=== PATIENT | female | born 1990 | race Caucasian/White ===

== ENCOUNTER → 2022-11-26 | Outpatient (CLI) | payer OTHER, SELFPAY | END | disposition home or self-care (01) | PROVIDERS: Referring Provider Obstetrics & Gynecology; Visit Provider Obstetrics & Gynecology | DX: N91.2 Amenorrhea, unspecified (principal) | CPT/HCPCS: 36415; 84702; 86850; 86900; 86901 ==

== ENCOUNTER → 2022-11-27 | Outpatient (CLI) | payer OTHER, SELFPAY ==
--- NOTE | 2022-11-27 09:57 | US_ITS ---
ACR Level 3 findings have been noted. An addendum which confirms receipt of the report will follow. INDICATION: viability EXAMINATION: US OB Less Than 14 Weeks TECHNIQUE: Transabdominal pelvic ultrasound was performed. Grayscale, spectral waveform, and color flow Doppler evaluation of the adnexa. COMPARISON: None. FINDINGS: UTERUS: Measures 8 x 5.8 x 4.7 cm. RIGHT OVARY: Measures 3.4 x 1.8 x 1.6 cm. Normal. LEFT OVARY: Measures 3 x 3.1 x 2.4 cm. Normal. FREE FLUID: None. INTRAUTERINE GESTATIONAL SAC(s) (size/shape): Single. YOLK SAC: Identified POLE: Identified CRL 0.8 cm. ESTIMATED GESTATION AGE: 6 weeks and 6 days. HEART MOTION: 132 bpm. PLACENTA: Not visualized due to age. SUBCHORIONIC HEMORRHAGE: Small AMNIOTIC FLUID: Qualitatively normal. US/Init OB < 14Wks US IMPRESSION: Single live intrauterine . Estimated gestational age is 6 weeks and 6 days. Small subchorionic hemorrhage. Electronically Signed: Zev Salas MD at 19:35 EDT ,
== END | disposition home or self-care (01) ==
LOC: US 09:56
PROVIDERS: Visit Provider Obstetrics & Gynecology
DX: O36.80X0 Pregnancy with inconclusive fetal viability, not applicable or unspecified (principal); Z3A.00 Weeks of gestation of pregnancy not specified
CPT/HCPCS: 76801

== ENCOUNTER → 2022-12-25 | Outpatient (CLI) | payer OTHER, SELFPAY ==
[2022-12-27 05:07] LABS: Chlamydia By Nucleic Acid AMP Negative (Negative); Gonococcus By Nucleic Acid AMP Negative (Negative)
[2022-12-29 14:08] LABS: HPV APTIMA, High Risk Negative (Negative)
== END | disposition home or self-care (01) ==
LOC: OPBI 10:29
PROVIDERS: Referring Provider Obstetrics & Gynecology; Visit Provider Obstetrics & Gynecology
DX: Z34.90 Encounter for supervision of normal pregnancy, unspecified, unspecified trimester (principal)
CPT/HCPCS: 87086; 87088; 87491; 87591; 87624; 88175; G0145

== ENCOUNTER → 2023-02-19 | Outpatient (CLI) | payer OTHER, SELFPAY ==
--- NOTE | 2023-02-19 07:55 | US_ITS ---
STUDY: SECOND AND THIRD TRIMESTER OBSTETRICAL ULTRASOUND REASON FOR EXAM: Female, 32 years old anatomy LMP: October 11, 2022. TECHNIQUE: Transabdominal and Transvaginal TECHNICAL QUALITY: Adequate. PRIOR ULTRASOUND: Comparison is made with prior study dated November 27, 2022. FINDINGS: There is a single intrauterine fetus. The fetus is in a breech presentation. There is demonstrated cardiac activity with a heart rate of 141 bpm. There is a normal amniotic fluid volume. The largest amniotic fluid pocket measures 3.4 cm x 9.5 cm. The amniotic fluid index (DARRYL) is within normal limits. The placenta is posterior in location and is not low lying. There are Grade 0 placental changes. The cervix measures 3.8 cm in length. The bilateral adnexal regions are normal. BIOMETRY: BPD: 4.04 cm: 18 weeks, 2 days HC: 15.26 cm: 18 weeks, 2 days AC: 13.01 cm: 18 weeks, 4 days FL: 2.76 cm: 18 weeks, 3 days CI: 75% FL/BPD: 68% FL/HC: FL/AC: 21% HC/AC: 1.17 age by current US: 18 weeks, 2 days. KATHLEEN by current US: July 21, 2023. Estimated weight: 241 grams, +/- 36 grams, 30 %. age by prior US: 18 weeks, 5 days. KATHLEEN by prior US: July 18, 2023. Age by LMP: 18 weeks, 6 days. KATHLEEN by LMP: July 17, 2023. ANATOMY: Gender: Female Cranium: Normal lateral ventricles. Normal choroid plexus. Normal cerebellum. Normal cisterna magna. Normal face, nose and lips. Chest: Normal 4-chamber heart. Abdomen/Pelvis: Normal diaphragm. Normal stomach. Normal abdominal wall. Normal cord insertion. Normal 3 vessel cord. Normal kidneys. Normal bladder. Spine: Normal cervical spine. Normal thoracic spine. Normal lumbar spine. Normal sacrum. Extremities: Normal bilateral upper extremities. Normal bilateral lower extremities. US/OB Anatomy w/ Transvaginal IMPRESSION: Single live intrauterine gestation with a mean gestational age of 18 weeks and 5 days. The measurements obtained today fall within normal expected range. Electronically Signed: Shaheen Holland MD at 13:05 EDT ,
== END | disposition home or self-care (01) ==
LOC: OPUS 07:54
PROVIDERS: Referring Provider Obstetrics & Gynecology; Visit Provider Obstetrics & Gynecology
DX: Z34.91 Encounter for supervision of normal pregnancy, unspecified, first trimester (principal); Z3A.10 10 weeks gestation of pregnancy
CPT/HCPCS: 76805; 76817

== ENCOUNTER → 2023-03-18 | Outpatient (CLI) | payer OTHER, SELFPAY ==
[2023-03-18 09:10] LABS: Absolute Lymphocyte Count 1.64 X10^3/uL (0.83-4.51); Absolute Neutrophil Count 7.5 X10^3/uL (2.0-7.7); Basophil# 0.05 X10^3/uL; Basophil% 0.5 % (0-1); Hematocrit 37.9 % (37-47); Hemoglobin 13.3 g/dL (12.0-15.0); Lymphocyte # 1.64 X10^3/ul (0.83-4.51); Lymphocyte % 16.5 % (19-41); Mean Corp Hgb Conc 35.1 g/dL (32-36); Mean Corpuscular Volume 96.9 fL (81-99); Mean Platelet Vol. 9.3 fl (6.2-12.0); NRBC Flagged by Analyzer 0 % (0-5); Neutrophil # 7.54 X10^3/uL (2.7-7.7); Neutrophil % 76.2 % (47-70); Platelet Count 174 K/mm3 (150-450); RBC Distribution Width CV 13.7 % (11.6-14.6); RBC Distribution Width SD 49.1 fl (35.1-43.9); Red Blood Count 3.91 M/mm3 (4.2-5.4); White Blood Count 9.9 K/mm3 (4.4-11.0)
[2023-03-18 10:32] LABS: HIV - WCH Non-Reactive (Nonreactive); Hepatitis B Surface Antigen Non-Reactive (Nonreactive); Hepatitis C Antibody Non-Reactive (Nonreactive); Rubella IgG Equiv (Nonreactive); Syphilis Antibodies Non-reactive
== END | disposition home or self-care (01) ==
LOC: PAVLAB 08:55
PROVIDERS: Referring Provider Obstetrics & Gynecology; Visit Provider Obstetrics & Gynecology
DX: Z34.90 Encounter for supervision of normal pregnancy, unspecified, unspecified trimester (principal)
CPT/HCPCS: 36415; 85025; 86703; 86762; 86780; 86803; 86850; 86900; 86901; 87340

== ENCOUNTER → 2023-05-01 | Outpatient (CLI) | payer OTHER, SELFPAY ==
[2023-05-01 15:56] LABS: Glucose Challenge Gest 1H 50g 142 mg/dL (70-140)
[2023-05-01 17:12] LABS: Absolute Lymphocyte Count 1.52 X10^3/uL (0.83-4.51); Absolute Neutrophil Count 7.2 X10^3/uL (2.0-7.7); Basophil# 0.03 X10^3/uL; Basophil% 0.3 % (0-1); Eosinophil# 0.03 X10^3/uL; Eosinophils% 0.3 % (0-5); Hemoglobin 12.5 g/dL (12.0-15.0); Lymphocyte # 1.52 X10^3/ul (0.83-4.51); Lymphocyte % 16.3 % (19-41); Mean Corp Hgb Conc 34.7 g/dL (32-36); Mean Corpuscular Hgb 34.4 pg (27.0-32.0); Mean Corpuscular Volume 99.2 fL (81-99); Mean Platelet Vol. 9.8 fl (6.2-12.0); Monocyte# 0.48 X10^3/uL; Monocyte% 5.1 % (0-10); NRBC Flagged by Analyzer 0 % (0-5); Neutrophil # 7.22 X10^3/uL (2.7-7.7); Neutrophil % 77.5 % (47-70); Platelet Count 172 K/mm3 (150-450); RBC Distribution Width CV 13.3 % (11.6-14.6); RBC Distribution Width SD 48.1 fl (35.1-43.9); Red Blood Count 3.63 M/mm3 (4.2-5.4); White Blood Count 9.3 K/mm3 (4.4-11.0)
[2023-05-01 17:56] LABS: HIV - WCH Non-Reactive (Nonreactive); Syphilis Antibodies Non-reactive
== END | disposition home or self-care (01) ==
PROVIDERS: Nurse Practitioner Women's Health; Referring Provider Registered Nurse; Visit Provider Registered Nurse
DX: O09.90 Supervision of high risk pregnancy, unspecified, unspecified trimester (principal); Z13.1 Encounter for screening for diabetes mellitus; Z3A.26 26 weeks gestation of pregnancy
CPT/HCPCS: 36415; 82950; 85025; 86703; 86780

== ENCOUNTER → 2023-05-06 | Outpatient (CLI) | payer OTHER, SELFPAY ==
[2023-05-06 09:27] LABS: Glucose Challenge Gest 1H 50g 160 mg/dL (70-140)
== END | disposition home or self-care (01) ==
LOC: PAVLAB 08:11
PROVIDERS: Referring Provider Obstetrics & Gynecology; Visit Provider Obstetrics & Gynecology
DX: Z13.1 Encounter for screening for diabetes mellitus (principal)
CPT/HCPCS: 36415; 82950

== ENCOUNTER → 2023-05-09 | Outpatient (CLI) | payer OTHER, SELFPAY ==
[2023-05-09 10:49] LABS: Glucose GTT-Gestation. Fasting 101 mg/dL (<105)
[2023-05-09 11:43] LABS: Glucose GTT-Gestational 1 Hr 158 mg/dL (<190)
[2023-05-09 12:57] LABS: Glucose GTT-Gestational 2 Hr 142 mg/dL (<165)
[2023-05-09 14:10] LABS: Glucose GTT-Gestational 3 Hr 115 L (<145)
== END | disposition home or self-care (01) ==
LOC: LAB 09:48
PROVIDERS: Referring Provider Obstetrics & Gynecology; Visit Provider Obstetrics & Gynecology
DX: O99.810 Abnormal glucose complicating pregnancy (principal); Z3A.00 Weeks of gestation of pregnancy not specified
CPT/HCPCS: 36415; 82951; 82952

== ENCOUNTER → 2023-05-16 | Outpatient (CLI) | payer OTHER, SELFPAY ==
--- NOTE | 2023-05-16 09:19 | US_ITS ---
STUDY: ULTRASOUND BREAST - LEFT REASON FOR EXAM: Female, 32 years old. Palpable lump left breast. Patient is 31 weeks . TECHNIQUE: Axial and longitudinal images of the LEFT breast were performed with a high resolution ultrasound transducer. # OF IMAGES: 20 COMPARISON: None. FINDINGS: LEFT Breast: The upper inner quadrant of the left breast was examined with ultrasound. There is dense fibroglandular tissue. No sonographic abnormality is seen. US/Breast Limited Unilateral IMPRESSION: No sonographic abnormality is seen. ASSESSMENT CATEGORY: BIRADS Category 1: Negative. A letter regarding these results will be sent to the patient by the facility within 30 days. Electronically Signed: Shaheen Holland MD at 15:41 EDT ,
== END | disposition home or self-care (01) ==
PROVIDERS: Referring Provider Obstetrics & Gynecology; Visit Provider Obstetrics & Gynecology
DX: N63.20 Unspecified lump in the left breast, unspecified quadrant (principal)
CPT/HCPCS: 76642

== ENCOUNTER 2023-06-09 10:45 | Outpatient (CLI) | payer OTHER, SELFPAY ==
[2023-06-09 10:58] VITALS: BMI 30.5
[2023-06-09 11:00] VITALS: BP 125/77; PULSE 89; TEMP 36.9
--- NOTE | 2023-06-16 09:55 | OB.TRI.PN ---
Progress Notes Date of Service: 06/09/23 Progress Note: Patient presents for triage evaluation secondary to decreased movement FHT: 140 Moderate variability reactive no decelerations category I tracing [place]: no regular Contractions Assessment and plan: decresaed movement Reactive NST, reassuring maternal and status patient discharged to home to follow-up as scheduled. See problem list details for additional plan information. Charges/Coding Procedures Urinary/Genital 52xxx-59xxx: [id number] non-stress test Interp
== END 2023-06-09 11:56 | disposition home or self-care (01) ==
LOC: WPOUT 10:52 → WP 10:53
PROVIDERS: Visit Provider Obstetrics & Gynecology
DX: O36.8190 Decreased fetal movements, unspecified trimester, not applicable or unspecified (principal); Z3A.00 Weeks of gestation of pregnancy not specified
CPT/HCPCS: 59025; 59050

== ENCOUNTER → 2023-06-12 | Outpatient (CLI) | payer OTHER, SELFPAY ==
[2023-06-12 08:41] LABS: Basophil# 0.04 X10^3/uL; Basophil% 0.4 % (0-1); Eosinophil# 0.06 X10^3/uL; Eosinophils% 0.7 % (0-5); Hematocrit 38.2 % (37-47); Hemoglobin 13.4 g/dL (12.0-15.0); Lymphocyte % 16.4 % (19-41); Mean Corp Hgb Conc 35.1 g/dL (32-36); Mean Corpuscular Hgb 34.1 pg (27.0-32.0); Mean Corpuscular Volume 97.2 fL (81-99); Mean Platelet Vol. 9.3 fl (6.2-12.0); Monocyte# 0.47 X10^3/uL; Monocyte% 5.1 % (0-10); NRBC Flagged by Analyzer 0 % (0-5); Neutrophil # 7.03 X10^3/uL (2.7-7.7); Platelet Count 151 K/mm3 (150-450); RBC Distribution Width CV 13.6 % (11.6-14.6); RBC Distribution Width SD 48.5 fl (35.1-43.9); Red Blood Count 3.93 M/mm3 (4.2-5.4); White Blood Count 9.1 K/mm3 (4.4-11.0)
[2023-06-12 09:37] LABS: HIV - WCH Non-Reactive (Nonreactive); Syphilis Antibodies Non-reactive
== END | disposition home or self-care (01) ==
LOC: PAVLAB 08:27
PROVIDERS: Referring Provider Registered Nurse; Visit Provider Registered Nurse
DX: O09.90 Supervision of high risk pregnancy, unspecified, unspecified trimester (principal); Z3A.00 Weeks of gestation of pregnancy not specified
CPT/HCPCS: 36415; 85025; 86703; 86780

== ENCOUNTER → 2023-06-24 | Outpatient (CLI) | payer OTHER, SELFPAY | END | disposition home or self-care (01) | LOC: LABSPEC 13:22 | PROVIDERS: Referring Provider Nurse Practitioner Women's Health; Visit Provider Nurse Practitioner Women's Health | DX: Z34.90 Encounter for supervision of normal pregnancy, unspecified, unspecified trimester (principal) | CPT/HCPCS: 87081 ==

== ENCOUNTER 2023-07-18 09:05 | Inpatient (IN) | payer OTHER, SELFPAY ==
[2023-07-18] VITALS (43 sets, daily range): BP systolic 90–141; BP diastolic 53–87; PULSE 58–107; RESP 16; TEMP 36.4–36.8; O2SAT 98–100; BMI 31.0
[2023-07-18 09:53] LABS: Absolute Lymphocyte Count 1.57 X10^3/uL (0.83-4.51); Absolute Neutrophil Count 8.6 X10^3/uL (2.0-7.7); Basophil# 0.04 X10^3/uL; Basophil% 0.4 % (0-1); Eosinophil# 0.01 X10^3/uL; Eosinophils% 0.1 % (0-5); Hemoglobin 13.9 g/dL (12.0-15.0); Lymphocyte # 1.57 X10^3/ul (0.83-4.51); Lymphocyte % 14.6 % (19-41); Mean Corp Hgb Conc 34.8 g/dL (32-36); Mean Corpuscular Hgb 33.7 pg (27.0-32.0); Mean Corpuscular Volume 97.1 fL (81-99); Mean Platelet Vol. 9.7 fl (6.2-12.0); Monocyte# 0.55 X10^3/uL; Monocyte% 5.1 % (0-10); NRBC Flagged by Analyzer 0 % (0-5); Neutrophil # 8.55 X10^3/uL (2.7-7.7); Neutrophil % 79.2 % (47-70); Platelet Count 149 K/mm3 (150-450); RBC Distribution Width CV 13.5 % (11.6-14.6); RBC Distribution Width SD 47.9 fl (35.1-43.9); Red Blood Count 4.12 M/mm3 (4.2-5.4); White Blood Count 10.8 K/mm3 (4.4-11.0)
[2023-07-18] MEDS: Lactated Ringers 1,000 ML 200 ML IV (10:30)
[2023-07-18] MEDS: LACTATED RINGERS 500 ML 999 ML IV ×2 (11:05→13:18)
[2023-07-18] MEDS: fentaNYL-bupivacaine (epidural) 100 ML BAG EPIDURAL (12:55)
[2023-07-18] MEDS: Ondansetron 4 MG/2 ML Vial IV (13:19)
--- NOTE | 2023-07-18 14:37 | HP.PCM.OB_ITS ---
HPI - General General Date of Admission: 07/18/23 HPI Narrative TIANA ATKINSON, is a 32 F who presents IAL 5 cm dilated. Maternal Data Information KATHLEEN Calculator Estimated Delivery Date Method Current WG Current Estimate 07/18/23 LMP (Certain) 40w 0d PFSH PFSH Medical History Left breast lump Home Medications pediatric [id number] (Flintstones Complete (iron) chewable tablet) 1 tab PO DAILY 12/24/22 [History Last Taken 07/17/23 18:00] Allergy/AdvReac Type Severity Reaction Status Date / Time clarithromycin [From Biaxin] Allergy Intermediate Vomiting Verified 07/18/23 13:07 Family History Grandfather Colon cancer Paternal Grandmother Colon cancer Paternal Grandfather Colon cancer Maternal Grandmother Colon cancer Maternal Surgical History (Updated 07/18/23 @ 09:55 by Martha Christopher) History of lumpectomy of right breast Hx of tonsillectomy [place] teeth extracted Social History adopted: No household members: spouse and children number of children: 1 current occupational status: employed current occupation: Sales current occupational exposures/hazards: No pets and animals: No history of recent travel: No sexually active: Yes Smoking Status: Never smoker alcohol intake: never substance use type: does not use well-balanced diet: daily or most days caffeine: Yes Type: coffee Number of servings: 1 eating out: rarely or never during the past year weight has: increased > 10 lbs what type of physical activity do you participate in: none gage/christianity: Adventist seatbelt use: always do you feel safe at home: Yes additional social history: Michael- Insurance History 2 Elective abortions Hx Para 1 Spontaneous abortions Hx # Term Pregnancies Ectopic pregnancies Hx # Pregnancies Multiple births # of living children 1 Past Pregnancies Del. Date Name GA/Weeks Outcome Route Bth Weight Gen Labor Lgth Anesthesia Del Locatn Provider FOB 01/15/18 Fredis 36 live - full term 8# Male [address] [facility] Visit Details Expected Delivery Route/Plan Labor Preferences- CB/BF classes: no labor support person: Michael labor intervention preferences: [] pain management options preferred: epidural cut cord/dad catch: yes : yes PP control planned: discussed/POP discussed possible routes of delivery and associated risks: [] special requests: [] Plans Covid status: discussed. Flu vaccine: declines Tdap vaccine:declines Rhogam: na LARC form signed:yes Problem list reviewed and updated with the most current plan of care details and appropriate orders placed. Relevant counseling for the gestational age provided. Continue routine care and follow up unless otherwise noted in visit notes/problem list details OB Flowsheet Initial Weight: 211 lb Date -?-?-?-?-?-?-?-?-?-?-?-?- EGA Weight BP Urine Prot -?-?-?-?-?-?-?-?-?-?-?-?- Glucose FHR FuHt Pres Dilation -?-?-?-?-?-?-?-?-?-?-?-?- Effaced St Visit Note 12/25/22 -?-?-?-?-?-?-?-?-?-?-?-?- 10w 5d 211 lb 2 oz (+2 oz) 120/76 -?-?-?-?-?-?-?-?-?-?-?-?- 160 -?-?-?-?-?-?-?-?-?-?-?-?- SM- CRL cons wit h LMP SM- CRL 4.2 cm cons with LMP 01/25/23 -?-?-?-?-?-?-?-?-?-?-?-?- 15w 1d 213 lb (+2 lb) 120/75 Negative -?-?-?-?-?-?-?-?-?-?-?-?- Negative 147 -?-?-?-?-?-?-?-?-?-?-?-?- JV- pt is tearfu l today because a collegue lost a baby at 22 weeks recently. pt reassured and offered to bring her back more often to check on heart tones. still needs new ob labs. declined NIPT 02/13/23 -?-?-?-?-?-?-?-?-?-?-?-?- 17w 6d 211 lb 2 oz (+2 oz) 130/71 Trace -?-?-?-?-?-?-?-?-?-?-?-?- Negative 144 -?-?-?-?-?-?-?-?-?-?-?-?- LC-declines afp. has anatomy scheduled. no vb/cramping. LC-declines afp. has anatomy scheduled. no vb/cramping. difficult to get FHT, bedside ultrasound 144. 03/18/23 -?-?-?-?-?-?-?-?-?-?-?-?- 22w 4d 220 lb (+9 lb) 113/69 Negative -?-?-?-?-?-?-?-?-?-?-?-?- Negative 140 -?-?-?-?-?-?-?-?-?-?-?-?- SM- needs NOB la bs drawn still will get today 04/17/23 -?-?-?-?-?-?-?-?-?-?-?-?- 26w 6d 223 lb 8 oz (+12 lb 8 oz) 114/76 Negative -?-?-?-?-?-?-?-?-?-?-?-?- Negative 140 27 -?-?-?-?-?-?-?-?-?-?-?-?- LC- normal NOB l abs.no concerns today. LC- normal NOB labs.no cee rns today. will just obtain glucose next visit and other 28 week labs at 34 weeks 05/01/23 -?-?-?-?-?-?-?-?-?-?-?-?- 28w 6d 226 lb 6 oz (+15 lb 6 oz) 130/82 Negative -?-?-?-?-?-?-?-?-?-?-?-?- Negative 143 29 -?-?-?-?-?-?-?-?-?-?-?-?- MH-No VB, LOF. G ood FM. 28 wk labs pending. declines tdap. Larc done 05/16/23 -?-?-?-?-?-?-?-?-?-?-?-?- 31w 0d 226 lb 6 oz (+15 lb 6 oz) 119/77 Negative -?-?-?-?-?-?-?-?-?-?-?-?- Negative 140 31 -?-?-?-?-?-?-?-?-?-?-?-?- KW- no lof/vb/ct x. good fm. no concerns 05/31/23 -?-?-?-?-?-?-?-?-?-?-?-?- 33w 1d 229 lb 2 oz (+18 lb 2 oz) 116/68 Negative -?-?-?-?-?-?-?-?-?-?-?-?- Negative 135 33 -?-?-?-?-?-?-?-?-?-?-?-?- LC-no lof/vb/ctx . good fm. no concerns. obtaining repeat HIV/syphilis. 06/12/23 -?-?-?-?-?-?-?-?-?-?-?-?- 34w 6d 226 lb 8 oz (+15 lb 8 oz) 112/73 Negative -?-?-?-?-?-?-?-?-?-?-?-?- Negative 144 34 -?-?-?-?-?-?-?-?-?-?-?-?- LC- no lof/ctx/v b. good fm. no concerns. LC- no lof/ctx/vb. good fm. no concerns. 06/24/23 -?-?-?-?-?-?-?-?-?-?-?-?- 36w 4d 227 lb 8 oz (+16 lb 8 oz) 126/82 Negative -?-?-?-?-?-?-?-?-?-?-?-?- Negative 147 36 Cephalic 5 0 -?-?-?-?-?-?-?-?-?-?-?-?- 1 -2 MH-No VB, LOF. No reg CTX. Good FM. GBS 07/01/23 -?-?-?-?-?-?-?-?-?-?-?-?- 37w 4d 228 lb 4 oz (+17 lb 4 oz) 130/84 Negative -?-?-?-?-?-?-?-?-?-?-?-?- Negative 157 37 Cephalic 2 -?-?-?-?-?-?-?-?-?-?-?-?- 70 -2 MH-No VB, LOF. Good FM. Some low backache off and on. No reg CTX 07/08/23 -?-?-?-?-?-?-?-?-?-?-?-?- 38w 4d 228 lb 4 oz (+17 lb 4 oz) 122/78 Negative -?-?-?-?-?-?-?-?-?-?-?-?- Negative 156 38 Cephalic 3 -?-?-?-?-?-?-?-?-?-?-?-?- 70 -2 -No VB, lof. Good FM. No reg CTX or concerns 07/16/23 -?-?-?-?-?-?-?-?-?-?-?-?- 39w 5d 230 lb 4 oz (+19 lb 4 oz) 113/75 Trace -?-?--?-?-?-?-?-?-?-?-?-?- Negative 140 40 Cephalic 4 -?-?-?-?-?-?-?-?-?-?-?-?- 80 -2 KW-no vb/l of/regular ctx. good fm. labor precautions. declines membrane sweep today. Vital Signs Vital Signs Vital Signs: 07/18/23 08:56 07/18/23 08:56 07/18/23 11:08 Temperature Temperature Source Temporal Pulse Rate 97 Blood Pressure 141/82 H BP Systolic 141 BP Diastolic 82 Pulse Ox 07/18/23 11:08 07/18/23 11:08 07/18/23 11:08 Temperature 98.2 F Temperature Source Pulse Rate 83 Blood Pressure 130/72 H BP Systolic 130 BP Diastolic 72 Pulse Ox 07/18/23 12:31 07/18/23 12:31 07/18/23 12:37 Temperature Temperature Source Pulse Rate 82 90 Blood Pressure 119/74 BP Systolic 119 BP Diastolic 74 Pulse Ox 07/18/23 12:37 07/18/23 12:41 07/18/23 12:41 Temperature Temperature Source Pulse Rate 97 Blood Pressure BP Systolic BP Diastolic Pulse Ox 99 99 07/18/23 12:46 07/18/23 12:46 07/18/23 12:48 Temperature Temperature Source Pulse Rate 86 Blood Pressure 136/87 H BP Systolic 136 BP Diastolic 87 Pulse Ox 99 07/18/23 12:48 07/18/23 12:51 07/18/23 12:51 Temperature Temperature Source Pulse Rate 77 94 Blood Pressure BP Systolic BP Diastolic Pulse Ox 98 07/18/23 12:53 07/18/23 12:53 07/18/23 12:56 Temperature Temperature Source Pulse Rate 107 H 106 H Blood Pressure 111/56 L BP Systolic 111 BP Diastolic 56 Pulse Ox 07/18/23 12:56 07/18/23 12:58 07/18/23 12:58 Temperature Temperature Source Pulse Rate 100 Blood Pressure 111/70 BP Systolic 111 BP Diastolic 70 Pulse Ox 98 07/18/23 13:01 07/18/23 13:01 07/18/23 13:04 Temperature Temperature Source Pulse Rate 89 Blood Pressure 113/68 BP Systolic 113 BP Diastolic 68 Pulse Ox 99 07/18/23 13:04 07/18/23 13:06 07/18/23 13:06 Temperature Temperature Source Pulse Rate 90 85 Blood Pressure BP Systolic BP Diastolic Pulse Ox 99 07/18/23 13:08 07/18/23 13:08 07/18/23 13:11 Temperature Temperature Source Pulse Rate 105 H 73 Blood Pressure 110/63 BP Systolic 110 BP Diastolic 63 Pulse Ox 07/18/23 13:11 07/18/23 13:15 07/18/23 13:15 Temperature Temperature Source Pulse Rate 88 Blood Pressure 101/56 L BP Systolic 101 BP Diastolic 56 Pulse Ox 99 07/18/23 13:16 07/18/23 13:16 07/18/23 13:18 Temperature Temperature Source Pulse Rate 58 L Blood Pressure 90/53 L BP Systolic 90 BP Diastolic 53 Pulse Ox 100 07/18/23 13:18 07/18/23 13:21 07/18/23 13:21 Temperature Temperature Source Pulse Rate 68 63 Blood Pressure BP Systolic BP Diastolic Pulse Ox 98 07/18/23 13:23 07/18/23 13:23 07/18/23 13:26 Temperature Temperature Source Pulse Rate 91 84 Blood Pressure 100/62 BP Systolic 100 BP Diastolic 62 Pulse Ox 07/18/23 13:26 07/18/23 13:28 07/18/23 13:28 Temperature Temperature Source Pulse Rate 103 H Blood Pressure 98/53 L BP Systolic 98 BP Diastolic 53 Pulse Ox 98 07/18/23 14:01 07/18/23 14:01 07/18/23 14:02 Temperature 98.0 F Temperature Source Pulse Rate 71 Blood Pressure 120/63 BP Systolic 120 BP Diastolic 63 Pulse Ox 07/18/23 14:31 07/18/23 14:31 Temperature Temperature Source Pulse Rate 88 Blood Pressure 96/56 L BP Systolic 96 BP Diastolic 56 Pulse Ox Weight Weight: 229 lb Body Mass Index (BMI) 31.0 Labs Labs Labs: Blood Type O POSITIVE Antibody Screen NEGATIVE Hct 40.0 % (37-47) Hgb 13.9 g/dL (12.0-15.0) Obstetrics Ultrasound Syphilis Total Ab Non-reactive Rubella IgG Antibody Equiv (Nonreactive) Hep Bs Antigen Non-Reactive (Nonreactive) Hepatitis C Antibody Non-Reactive (Nonreactive) Chlamydia DNA ([place]) Negative (Negative) N.gonorrhoeae DNA ([place]) Negative (Negative) HIV 1&2 Antibody Non-Reactive (Nonreactive) Glucose 1 Hr 50 gm 160 mg/dL (70-140) H Gest Glucose Tolerance MG/DL
[2023-07-18] MEDS: Oxytocin 15 Units/NS 250ml 15 UNITS/250 ML IV.SOLN 363 UNITS IV (17:08)
[2023-07-18] MEDS: Oxytocin 10 UNITS/ML Vial IM (17:12)
--- NOTE | 2023-07-18 17:35 | EX.PCM.OBRPT ---
Assessment & Plan (1) Active labor at term: (2) Abnormal glucose tolerance in : COMMENT: nl 3 hr GTT (3) Supervision of high-risk : QUALIFIERS: Trimester: third trimester Qualified Code(s): O09.93 - Supervision of high risk , unspecified, third trimester COMMENT: PRR , KATHLEEN 07/18/23 PC Fredis, Michael (4) : QUALIFIERS: Weeks of gestation: 39 weeks Qualified Code(s): Z3A.39 - 39 weeks gestation of COMMENT: Neg GBS. declined NIPT and afp, & negative Carrier testing in past, normal anatomy consistent KATHLEEN (5) Vaginal delivery: COMMENT: SM 40 IAL girl Lulu Maternal Data Information KATHLEEN Calculator Estimated Delivery Date Method Current WG Current Estimate 07/18/23 LMP (Certain) 40w 0d Vaginal Delivery Operative Information Date of Procedure: 07/18/23 Pre-Operative Diagnosis: see a/p diagnoses Post-Operative Diagnosis: same Surgery / Procedure Performed: Spontaneous Vaginal Delivery Type of Anesthesia: Epidural Special Medications: none Estimated Blood Loss: 400 Fluids Replaced: crystalloid Findings Description of Procedure: Patient began pushing and delivered the head in the ELIZABETH presentation. The head was delivered atraumatically gracie tight nc x 2 was seen. The anterior and posterior shoulders delivered without complication and the cord was unable to be reduced and therefore was cut on the perineum followed by the rest of the infant and the infant was placed on the maternal abdomen. gentle traction was applied to the cord and the placenta delivered spontaneously immediately following it was noted to be intact with three-vessel cord. The perineum and vagina were inspected and noted to have no laceration. EBL was 400. Patient and infant tolerated delivery well. Amniotic Fluid Description: Clear Placental Delivery Description: Spontaneous Placenta Disposition: [facility] Cord Vessel Description: 3 Vessels Cord Entanglement: None Delayed Cord Clamping: Yes Post Vaginal Delivery Medications Given After Delivery: IV Pitocin Episiotomy Description: None Complication Complications: None Procedures Urinary/Genital 52xxx-59xxx: [id number] Vaginal Delivery global pkg
--- NOTE | 2023-07-18 17:38 | DCINST_ITS ---
Discharge Instructions Diet Discharge Diet: No restrictions Activity Discharge Activity: Return to Normal Activity, May Not Drive (while taking narcotic pain medications.) and May Shower May resume sexual activity in: 4-6 weeks Dressing / Incision Call your doctor if your incision/area has: Continuous Slow Oozing, Sudden Increased Bleeding, Increased Pain/ Swelling, Increased Redness and Foul Smelling Discharge Follow Up Care Please Follow Up With: Jinny Spaulding MD When: Call [phone] to make an appointment with your doctor in 6 weeks. If you had elevated blood pressure or 4th degree laceration, you will need to be seen in 2 weeks. Test Results: Test results from this visit will be discussed in further detail at your follow- up appointment, if applicable. Discharge Plan Admission Admit Date/Time: 07/18/23 09:05 Attending Provider: Jinny Spaulding Discharge Orders/Prescriptions Prescriptions: No Action Karliintselza Complete (iron) Tablet,Chewable 1 tab PO DAILY Rx Instructions: administer with a meal Disposition Disposition (needs filled in before D/C Order can be placed): Home, Self Care
[2023-07-18] MEDS: Oxytocin 15 Units/NS 250ml 15 UNITS/250 ML IV.SOLN 83 UNITS IV (18:20)
[2023-07-18] MEDS: Acetaminophen 500 MG Tablet 1000 MG PO (19:22)
[2023-07-19] VITALS (7 sets, daily range): BP systolic 101–114; BP diastolic 51–63; PULSE 64–71; RESP 14–16; TEMP 36.4–37.1; O2SAT 97–98
[2023-07-19] MEDS: Naproxen 500 MG Tablet PO (01:53)
--- NOTE | 2023-07-19 06:56 | PN.OBGYN_ITS ---
Subjective Subjective Patient doing well without complaints. Tolerating PO. Ambulating and voiding without difficulty. Feeding well. Denies chest pain, shortness of breath, calf pain/swelling, fevers, chills, lightheadedness. Objective Data Objective Data Vital Signs: Vital Signs Temp Pulse Resp BP Pulse Ox O2 Del Method 97.6 F L 66 16 101/57 L 98 Room Air 07/19/23 04:23 07/19/23 04:23 07/19/23 04:23 07/19/23 04:23 07/18/23 13:26 07/19/23 04:23 Oxygen Delivery Method Room Air Weight: 229 lb Body Mass Index (BMI) 31.0 Intake & Output: Intake and Output for Last 24 Hours 07/17/23 07/18/23 07/19/23 23:59 23:59 23:59 Intake Total 2490.70 / 2490.70 Output Total 1800 / 1800 700 / 700 Balance 690.70 / 690.70 -700 / -700 Lab / Micro Data 07/18/23 09:35 Labs: Laboratory Results - last 24 hr 07/18/23 09:10: Syphilis Total Ab Cancelled 07/18/23 09:35: WBC 10.8, RBC 4.12 L, Hgb 13.9, Hct 40.0, MCV 97.1, MCH 33.7 H, MCHC 34.8, RDW Std Deviation 47.9 H, RDW Coeff of [place] 13.5, Plt Count 149 L, MPV 9.7, Immature Gran % (Auto) 0.600, Neut % (Auto) 79.2 H, Lymph % (Auto) 14.6 L, [place] % (Auto) 5.1, Eos % (Auto) 0.1, Baso % (Auto) 0.4, Absolute Neuts (auto) 8.6 H, Absolute Lymphs (auto) 1.57, Nucleated RBC % 0, Blood Type O POSITIVE, Antibody Screen NEGATIVE ROS Constitutional Constitutional: Denies chills, fatigue, fever(s), poor appetite or weakness Eyes Eyes: Denies blurry vision, change in vision, seeing flashes or spots in vision ENT HEENT: Denies dizziness, headache(s), loss taste/smell or sore throat Cardiovascular Cardiovascular: Denies chest pain, dizziness, dyspnea, irregular heart rhythm, palpitations or rapid heart rate Respiratory/Chest Respiratory/Chest: Denies chest tightness, cough, dyspnea or breast pain Gastrointestinal Gastrointestinal: Denies abdominal pain, constipation or vomiting Genitourinary Genitourinary: Denies dysuria or flank pain Musculoskeletal Musculoskeletal: Denies difficulty walking, joint pain, limited range of motion or numbness Neurologic Neurologic: Denies abnormal movements, abnormal speech, dizziness, numbness, seizure-like activity or syncope Psychiatric Psychiatric: Denies anxiety, behavioral changes, change in appetite, confusion, depression or suicidal thoughts Physical Exam Const alert, oriented x3 and no apparent distress General Appearance: cooperative and comfortable Resp normal respiratory effort Cardio regular rate GI normal to inspection, nondistended, normoactive bowel sounds GI Narrative: uterus is firm below umbilicus Palpation: soft Back/Spine no CVA tenderness and thoraco-lumbar ROM normal Extremity normal to inspection, no clubbing, cyanosis or edema, no calf tenderness and no pedal edema Psych mental status grossly normal, thought process normal, cooperative, affect normal, speech normal, activity/motor behavior normal, denies homicidal ideation and denies suicidal ideation Assessment & Plan (1) Vaginal delivery: COMMENT: TISH 40 IAL girl Lulu PLAN: s/p PPD # 1 1. routine post delivery care 2. breast feeding- support given 3. rh positive 4. rubella immune 5. may likely go home later today
[2023-07-19] MEDS: Senna/Docusate Sodium 1 Tablet PO (08:50)
[2023-07-19] MEDS: Benzocaine/Lanolin/Aloe Vera 1 SPRAY EACH TOPICAL (11:03)
== END 2023-07-19 18:45 | disposition home or self-care (01) | DRG 807 ==
LOC: WPOUT 09:09 → WP 09:09
PROVIDERS: Admitting Provider Obstetrics & Gynecology; Referring Provider Obstetrics & Gynecology; Visit Provider Obstetrics & Gynecology
DX: O80 Encounter for full-term uncomplicated delivery (principal); Z37.0 Single live birth; Z3A.39 39 weeks gestation of pregnancy
CPT/HCPCS: 59025; 59050; 85025; 86850; 86900; 86901; 99221; J7120; G0378; J2405

== ENCOUNTER 2023-08-19 18:01 | Emergency (ER) | payer OTHER, SELFPAY ==
[2023-08-19 18:03] VITALS: BP 129/76; PULSE 78; RESP 16; TEMP 36.4; O2SAT 100; BMI 28.3
--- NOTE | 2023-08-19 18:05 | RAD_ITS ---
STUDY: X-RAY - LEFT SHOULDER REASON FOR EXAM: Female, 32 years old. INJURY TECHNIQUE: 2 view(s) of the shoulder. COMPARISON: None. FINDINGS: Normal glenohumeral articulation. Normal acromioclavicular joint. Normal acromion. Normal humeral head and visualized proximal humerus. The soft tissue structures are unremarkable. Normal visualized pulmonary apex. RAD/Shoulder min 2 Views IMPRESSION: Normal x-ray examination of the shoulder. Electronically Signed: Jake Winkler MD at 18:46 EST ,
--- NOTE | 2023-08-19 18:05 | RAD_ITS ---
STUDY: X-RAY - LEFT ELBOW REASON FOR EXAM: Female, 32 years old. INJURY TECHNIQUE: 4 view(s) of the elbow. COMPARISON: None. FINDINGS: Normal visualized humerus, radius and ulna. Normal radiocapitellar and ulnotrochlear articulations. Mild elevation of the anterior fat pad making it difficult to exclude acute radiographically occult intra-articular fracture. RAD/Elbow min 3 Views IMPRESSION: No definitive evidence for acute fracture or dislocation. However cannot definitively exclude radiographically occult intra-articular fracture. Electronically Signed: Jake Winkler MD at 18:47 EST Reading Location ID and State: [facility] / [place] Tel , Service support ,
--- NOTE | 2023-08-19 18:15 | RAD_ITS ---
STUDY: X-RAY - LEFT WRIST REASON FOR EXAM: Female, 32 years old. INJURY TECHNIQUE: 3 view(s) of the wrist were obtained. COMPARISON: None. FINDINGS: Normal visualized distal radius and ulna. Normal radiocarpal articulation. Normal distal radioulnar articulation. Normal carpal bones. Normal carpal articulations. Normal carpometacarpal articulation of the thumb. Normal second through fifth carpometacarpal articulations. Normal visualized metacarpal bones. The soft tissue structures are unremarkable. RAD/Wrist min 3 Views IMPRESSION: Normal x-ray examination of the wrist. Electronically Signed: Jake Winkler MD at 18:47 EST ,
--- NOTE | 2023-08-19 19:39 | EDS_ITS ---
HPI <KARL Hernandez - Last Filed: 08/19/23 19:45> History of Present Illness Chief Complaint: Upper Extremity Injury Narrative Narrative: 32-year-old female had her hand in her jacket pocket and tripped over the gas hose landing on her left arm. She states initially she had pain in the shoulder elbow and wrist but now only her elbow hurts. She has no numbness or tingling. She is right-hand dominant. PFSH <KARL Hernandez - Last Filed: 08/19/23 19:45> PFSH Medical History (Updated 08/19/23 @ 19:42 by KARL Hernandez) Left breast lump Home Medications pediatric [id number] (Flintstones Complete (iron) chewable tablet) 1 tab PO DAILY 12/24/22 [History Last Taken 07/17/23 18:00] Allergy/AdvReac Type Severity Reaction Status Date / Time clarithromycin [From Biaxin] Allergy Intermediate Vomiting Verified 07/18/23 13:07 Family History Grandfather Colon cancer Paternal Grandmother Colon cancer Paternal Grandfather Colon cancer Maternal Grandmother Colon cancer Maternal Surgical History History of lumpectomy of right breast Hx of tonsillectomy [place] teeth extracted Social History adopted: No household members: spouse and children number of children: 1 current occupational status: employed current occupation: Sales current occupational exposures/hazards: No pets and animals: No history of recent travel: No sexually active: Yes Smoking Status: Never smoker alcohol intake: never substance use type: does not use well-balanced diet: daily or most days caffeine: Yes Type: coffee Number of servings: 1 eating out: rarely or never during the past year weight has: increased > 10 lbs what type of physical activity do you participate in: none gage/mormonism: [employer] Orthodox seatbelt use: always do you feel safe at home: Yes additional social history: Michael- Insurance ROS <KARL Hernandez - Last Filed: 08/19/23 19:45> ROS ED ROS Narrative Neuro: Negative for motor/sensory dysfunction. Skin: Negative for wound. Musc: Positive for left elbow pain, trauma. EXAM <KARL Hernandez - Last Filed: 08/19/23 19:45> Physical Exam Narrative Exam Narrative: CONST: Patient sitting in no acute distress. EYES: Normal inspection. NECK: Normal inspection. RESP: No respiratory distress, CTAB. CVS: Regular rate and rhythm, no murmur, no gallop. SKIN: Color normal, no rash, warm, dry, intact. EXTREMITIES: Normal appearance of both upper extremities. Full range of motion of the left shoulder elbow wrist and hand. She has no reproducible tenderness but states her elbow hurts with pronation and supination. No deformity or crepitus. Normal sensation in axillary median radial and ulnar distributions, 5/5 strength throughout, 2+ radial pulse. NEURO: Oriented x4. PSYCH: Normal affect. Const Vital Signs: 08/19/23 18:03 Temperature 97.5 F L Temperature Source Temporal Pulse Rate 78 Respiratory Rate 16 Blood Pressure 129/76 H Blood Pressure Mean 93 Pulse Ox 100 Oxygen Delivery Method Room Air MDM <KARL Hernandez - Last Filed: 08/19/23 19:45> MDM MDM Narrative Medical decision making narrative: History gathered from: Patient and Patient had mechanical fall injuring her left upper extremity. Initially had pain in the shoulder elbow and wrist but now states only her elbow hurts. She has no deformity or crepitus. Full range of motion and neurovascularly intact. She has pain with elbow supination and pronation but has full range of motion. X-rays of the shoulder, elbow, wrist all negative for acute findings. Patient advised on symptomatic care and if her elbow does not feel improved in 7 days to see her primary care for repeat x-ray to rule out occult fracture. She was discharged in stable condition. Radiography Diagnostic Testing: Clinical Impression(s) from Imaging Studies Elbow X-Ray 08/19/23 18:05 IMPRESSION: No definitive evidence for acute fracture or dislocation. However cannot definitively exclude radiographically occult intra-articular fracture. Electronically Signed: Jake Winkler MD at 18:47 EST Reading Location ID and State: [facility] / [place] Tel , Service support , Shoulder X-Ray 08/19/23 18:05 IMPRESSION: Normal x-ray examination of the shoulder. Electronically Signed: Jake Winkler MD at 18:46 EST , Wrist X-Ray 08/19/23 18:15 IMPRESSION: Normal x-ray examination of the wrist. Electronically Signed: Jake Winkler MD at 18:47 EST , <Ryan Valencia MD - Last Filed: 08/19/23 23:08> [facility] Narrative Medical decision making narrative: History gathered from: Patient and Patient had mechanical fall injuring her left upper extremity. Initially had pain in the shoulder elbow and wrist but now states only her elbow hurts. She has no deformity or crepitus. Full range of motion and neurovascularly intact. She has pain with elbow supination and pronation but has full range of motion. X-rays of the shoulder, elbow, wrist all negative for acute findings. Patient advised on symptomatic care and if her elbow does not feel improved in 7 days to see her primary care for repeat x-ray to rule out occult fracture. She was discharged in stable condition. Dr. Valencia: I have personally performed a face to face assessment of the patient and have reviewed the JANEL Note. I performed a substantive portion of the visit including all aspects of the following. My beltran findings include: History is tripped over a gas line hose. Injury to left arm, especially elbow. Exam is GCS 15. ABCs intact. Regular rate and rhythm. Lungs clear to auscul tation bilaterally. Abdomen soft and nontender. Mild tenderness to palpation diffusely left elbow. Palpable radial pulse. Medical Decision Making: X-rays of the left shoulder, left elbow, and left wrist interpreted by myself independently shows no evidence of acute fracture. I reviewed the radiology reports which confirmed my independent interpretations. Patient will be discharged take [id number] medications as needed. She will continue application of ice. She was told she may need repeat x-rays in approximately 7 to 10 days if she has continued pain. I feel she can be discharged safely home with follow-up. Return instructions reviewed. Disposition is discharged home in stable condition. Other additions or changes: [None] Discharge Plan Triage Chief Complaint: Upper Extremity Injury ED Midlevel Provider: Alia Bennett ED Provider: Ryan Valencia Dx/Rx/DC Orders Clinical Impression: Contusion of left elbow Instructions: Bruises (Contusions) Prescriptions: No Action Flintstones Complete (iron) Tablet,Chewable 1 tab PO DAILY Rx Instructions: administer with a meal Primary Care Provider: Care Physician,No Primary Activity Restrictions/Additional Instructions: Ice and take Tylenol Motrin as needed. If pain is not improving in 1 week see your primary care doctor for repeat elbow x-ray. Disposition Disposition: Home, Self Care Discharge Date/Time: 08/19/23 20:07
== END 2023-08-19 20:07 | disposition home or self-care (01) ==
LOC: ED 19:48
PROVIDERS: Emergency Provider Emergency Medicine; Visit Provider Emergency Medicine
DX: S50.02XA Contusion of left elbow, initial encounter (principal); W01.198A Fall on same level from slipping, tripping and stumbling with subsequent striking against other object, initial encounter
CPT/HCPCS: 73030; 73080; 73110; 99282